=== PATIENT | female | born 1960 | race Caucasian/White ===

== ENCOUNTER 2018-04-30 10:42 | Outpatient (REF) | payer OTHER, SELFPAY ==
--- NOTE | 2018-04-30 10:30 | PAPFT_PTH ---
PATIENT: Clara Razo LOC: [facility] U#:[id number] AGE/SX: 57/F ROOM: RE04/30/[address]: MIHIR Mckenna : 1960 BED: DIS: 04/30/2018 SPEC #: [id number] RECD: 04/30/18 12:56 STATUS: GREGORIO REMy #: [id number] ALEXANDRA: 04/30/18 10:[address]: Devi White DEPT: [facility] Cytology RECD BY: Linh Mccullough ENTERED: 04/30/18 12:56 SP TYPE: PAPFT OT DR: Kiley Hurst APRN Tissues: 1 - CX/ENDOCX FOR PAP SMEARS Procedures: PAP THIN PREP/UVM Screening HPV DNA PROBE Comments: [id number]
== END 2018-04-30 11:02 ==
LOC: LBN 10:42
PROVIDERS: PCP Nurse Practitioner; Visit Provider Nurse Practitioner Family
DX: Z12.4 Encounter for screening for malignant neoplasm of cervix (principal); Z11.51 Encounter for screening for human papillomavirus (HPV)
CPT/HCPCS: 88142; 87624

== ENCOUNTER 2018-05-08 02:00 | Outpatient (CLI) | payer OTHER, SELFPAY ==
--- NOTE | 2018-05-08 13:18 | DI.MAMMO_ITS ---
SYMPTOMS/DIAGNOSIS: SCREENING, Z12.31 MAMMOGRAMS: Mammograms were interpreted according to the usual protocol including computer analysis with CAD system, tomosynthesis and C view imaging. The breast tissue is of moderate radiodensity. There is no evidence of a mass. There are no suspicious calcifications and there has been no significant interval change when compared with prior images. SUMMARY: No evidence of malignancy, category 1. Yearly screening mammography is recommended. Breast density category B. SA ASSESSMENT OF FINDINGS: Negative. Category 1. Patient will receive a letter notifying them of these results. BI-RADS category B. There are scattered areas of fibroglandular density.
== END 2018-05-08 02:20 ==
PROVIDERS: PCP Nurse Practitioner; Visit Provider Nurse Practitioner Family
DX: Z12.31 Encounter for screening mammogram for malignant neoplasm of breast (principal)
CPT/HCPCS: 77063; 77067

== ENCOUNTER 2018-05-30 09:18 | Outpatient (CLI) | payer OTHER, SELFPAY ==
[2018-05-30 09:34] LABS: HCT 46.8 % (36.0-46.0); HGB 15.2 g/dL (12.0-15.5); Mean Corp. HGB Concentration 32.5 g/dL (32.0-36.0); Mean Corpuscular Hemoglobin 27.5 pg (27.0-33.0); Mean Corpuscular Volume 84.6 fL (80-95); Mean Platelet Volume 9.6 fL (8.0-11.0); Platelet Count 258 x1000/uL (130-400); RBC 5.53 m/cumm (4.00-5.20); RBC Distribution Width 15.2 % (11.7-14.6); White Blood Cell Count 7.57 k/cumm (4.4-10.8)
[2018-05-30 10:34] LABS: ALT 61 U/L (12-78); AST 26 U/L (15-37); Alkaline Phosphatase 102 U/L (46-116); Anion Gap 8.7 mmol/L (3-11); BUN 16 mg/dL (7-18); Bilirubin, Total 0.5 mg/dL (0.2-1.0); CO2 31.3 mmol/L (21.0-32.0); CREATININE 0.94 mg/dL (0.55-1.02); Calcium 9.8 mg/dL (8.5-10.1); Chloride 102 mmol/L (98-107); Cholesterol 164 mg/dL (50-200); Glucose 99 mg/dL (70-100); HDL Cholesterol 50 mg/dL (40-60); LDL CHOLESTEROL 102 mg/dL (<100); Potassium 4.3 mmol/L (3.5-5.1); Sodium 142 mmol/L (136-145); TSH (W/Ref FT4) 1.52 uIU/mL (0.358-3.74); Total Protein 7.6 g/dL (6.4-8.2); Triglyceride 77 mg/dL (30-150)
== END 2018-05-30 09:38 ==
PROVIDERS: PCP Nurse Practitioner; Visit Provider Nurse Practitioner
DX: E66.9 Obesity, unspecified (principal); Z13.220 Encounter for screening for lipoid disorders
CPT/HCPCS: 36415; 80053; 80061; 83721; 85027; 84443

== ENCOUNTER 2019-05-16 03:27 | Outpatient (CLI) | payer BC, SELFPAY ==
--- NOTE | 2019-05-16 15:34 | DI.MAMMO_ITS ---
EXAM: MG MAMMO SCREENING CLINICAL HISTORY: SCREENING TECHNIQUE: Mammograms were interpreted according to the usual protocol including computer analysis w [email or web address] CAD system, tomosynthesis and C-view imaging. COMPARISON: Current examination is compared with previous examinations including April 2018 and 2015 FINDINGS: Breasts are of moderate density with fairly symmetrical distribution of fibroglandular tissue. No do minant mass or clumped microcalcification is identified in either breast. Current examination is com pared with previous examinations including April 2018 and January 2016 and there has been no gross i nterval change in appearance in comparison with the previous studies. IMPRESSION: No specific evidence of malignancy at this time. Routine screening examinations are suggested at year ly intervals in this age group according to the ACS ACR guidelines. BI-RADS Cat 1 - Negative Breast Density - Category B - Scattered areas of fibroglandular density
== END 2019-05-16 03:47 ==
PROVIDERS: PCP Student in an Organized Health Care Education/Training Program; Visit Provider Nurse Practitioner Family
DX: Z12.31 Encounter for screening mammogram for malignant neoplasm of breast (principal)
CPT/HCPCS: 77063; 77067

== ENCOUNTER 2019-11-04 07:11 | Outpatient (CLI) | payer BC, SELFPAY ==
[2019-11-05 21:05] LABS: Patient Race White; SARS-CoV-2 RNA Undetected (Undetected); SARS-CoV-2 Specimen Source Nasopharynx
== END 2019-11-04 07:31 ==
PROVIDERS: PCP Student in an Organized Health Care Education/Training Program; Visit Provider Student in an Organized Health Care Education/Training Program
DX: Z20.828 Contact with and (suspected) exposure to other viral communicable diseases (principal)
CPT/HCPCS: U0003

== ENCOUNTER 2020-06-24 01:27 | Outpatient (CLI) | payer BC, SELFPAY ==
--- NOTE | 2020-06-24 15:55 | DI.MAMMO_ITS ---
Exam(s) MAMMO SCREENING EXAM: MAMMO SCREENING CLINICAL HISTORY: screening,Z12.39. TECHNIQUE: Bilateral full field digital CC and MLO mammographic images were obtained with 3D tomosyn thesis and utilizing computer aided detection (CAD). COMPARISON: Prior mammograms dating back to 2010, the most recent being April 2003. FINDINGS: Asymmetric densities left breast remain unchanged from prior studies. There are no new spiculated masses nor malignant appearing microcalcification groups. There is no significant architectural distortion nor skin thickening-retraction. IMPRESSION: Stable benign findings. No radiographic evidence of malignancy. BI-RADS Category 2 - Benign Findings Breast Density - Category B - Scattered areas of fibroglandular density Breast density Category C or D implies that the patient has dense breast tissue. Dense breast tissue can make it harder to find cancer on a mammogram. Dense breast tissue is also associated with an incr eased risk of breast cancer. This information about the result of the mammogram report was provided to the patient to raise their awareness. Use this report when you speak with the patient about their risks for breast cancer, which includes their family history. At that time, you may recommend additional screening tests (Ultrasoun d or MRI) as these tests may add significant information. A negative radiographic report should not delay biopsy if a dominant or clinically suspicious mass is present. Up to ten percent of cancers are not identified on mammography. A negative report may reinforce clinical impression. Adenosis and dense breasts may obscure an underlying neoplasm. False positive reports average 6 to 10%. Patient will receive a letter notifying them of these results.
== END 2020-06-24 01:47 ==
PROVIDERS: PCP Student in an Organized Health Care Education/Training Program; Visit Provider Nurse Practitioner Family
DX: Z12.31 Encounter for screening mammogram for malignant neoplasm of breast (principal)
CPT/HCPCS: 77063; 77067

== ENCOUNTER 2021-06-16 09:42 | Outpatient (REF) | payer BC, SELFPAY ==
--- NOTE | 2021-06-16 09:15 | PAPFT_PTH ---
PATIENT: Clara Razo LOC: [facility] U#:[id number] AGE/SX: 60/F ROOM: RE06/16/[address]: MIHIR Mckenna : 1960 BED: DIS: 06/16/2021 SPEC #: [id number] RECD: 06/16/21 12:40 STATUS: GREGORIO REMy #: [id number] ALEXANDRA: 06/16/21 09:[address]: Devi White DEPT: [facility] Cytology RECD BY: Linh Mccullough ENTERED: 06/16/21 12:40 SP TYPE: PAPFT OTHR DR: Kalie Rapp, DO Tissues: 1 - CX/ENDOCX FOR PAP SMEARS Procedures: PAP THIN PREP/UVM Screening HPV DNA PROBE Comments: [id number]
== END 2021-06-16 09:43 | disposition home or self-care (01) ==
LOC: LBN 09:42
PROVIDERS: PCP Student in an Organized Health Care Education/Training Program; Visit Provider Nurse Practitioner Family
DX: Z12.4 Encounter for screening for malignant neoplasm of cervix (principal); Z11.51 Encounter for screening for human papillomavirus (HPV)
CPT/HCPCS: 88142; 87624

== ENCOUNTER → 2021-07-20 03:51 | Outpatient (CLI) | payer BC, SELFPAY ==
--- NOTE | 2021-07-20 16:30 | DI.MAMMO_ITS ---
Exam(s) MAMMO SCREENING EXAM: MAMMO SCREENING CLINICAL HISTORY: screening TECHNIQUE: Bilateral full field digital CC and MLO mammographic images were obtained with 3D tomosyn thesis and utilizing computer aided detection (CAD). COMPARISON: Available for comparison. FINDINGS: Masses/Architectural Distortion: None seen. Microcalcifications: No suspicious pleomorphic-type are seen. Skin Thickening/Nipple Retraction: None. IMPRESSION: 1. No significant interval change with no specific features of malignancy noted. 2. Unless there is more urgent need, screening mammography is recommended, as per [employer] guidelines. BI-RADS Category 1 - Negative Breast Density - Category B - Scattered areas of fibroglandular density Breast density category C or D implies that the patient has dense breast tissue. Dense breast tissue is very common and is not abnormal but dense breast tissue can make it harder to find cancer on a ma mmogram. Also, dense breast tissue may increase their breast cancer risk. This information about the result of the mammogram report was provided to the patient to raise their awareness. Use this report when you speak with the patient about their risks for breast cancer, which includes their family hist ory. At that time, you may recommend for more screening tests (Ultrasound or MRI) as they might be us eful based on their risk. A negative radiographic report should not delay biopsy if a dominant or clinically suspicious mass is present. Up to ten percent of cancers are not identified on mammography. A negative report may reinforce clinical impression. Adenosis and dense breasts may obscure an underlying neoplasm. False positive reports average 6 to 10%. Patient will receive a letter notifying them of these results.
== END ==
PROVIDERS: PCP Student in an Organized Health Care Education/Training Program; Visit Provider Nurse Practitioner Family
DX: Z12.31 Encounter for screening mammogram for malignant neoplasm of breast (principal); R92.8 Other abnormal and inconclusive findings on diagnostic imaging of breast
CPT/HCPCS: 77063; 77067

== ENCOUNTER 2021-10-03 03:37 | Outpatient (CLI) | payer OTHER, SELFPAY ==
[2021-10-03 07:34] LABS: HGB 14.6 g/dL (11.2-15.7)
[2021-10-03 08:10] LABS: ALT 52 U/L (14-59); AST 25 U/L (15-37); Albumin 3.5 g/dL (3.4-5.0); Alkaline Phosphatase 96 U/L (46-116); Anion Gap 8.2 mmol/L (3-11); BUN 15 mg/dL (7-18); Bilirubin, Total 0.2 mg/dL (0.2-1.0); CO2 27.8 mmol/L (21.0-32.0); CREATININE 0.8 mg/dL (0.55-1.02); Calcium 8.6 mg/dL (8.5-10.1); Calculated LDL 77 mg/dL (<100); Chloride 106 mmol/L (98-107); Cholesterol 137 mg/dL (<200); Glucose 93 mg/dL (74-106); HDL Cholesterol 47 mg/dL (40-60); Magnesium 1.8 mg/dL (1.8-2.4); Potassium 3.4 mmol/L (3.5-5.1); Sodium 142 mmol/L (136-145); Total Protein 7.2 g/dL (6.4-8.2); Triglyceride 67 mg/dL (<150)
[2021-10-05 19:22] LABS: Lab Add On Test DONE
[2021-10-05 19:57] LABS: Hemoglobin A1C 6.2 % (<5.7)
== END 2021-10-03 03:38 | disposition home or self-care (01) ==
LOC: LBO 03:37
PROVIDERS: PCP Student in an Organized Health Care Education/Training Program; Visit Provider Student in an Organized Health Care Education/Training Program
DX: E86.0 Dehydration (principal); E87.8 Other disorders of electrolyte and fluid balance, not elsewhere classified; K59.00 Constipation, unspecified; N28.9 Disorder of kidney and ureter, unspecified; Z13.6 Encounter for screening for cardiovascular disorders
CPT/HCPCS: 36415; 80053; 80061; 83036; 83735; 85018

== ENCOUNTER → 2021-12-01 02:02 | Outpatient (CLI) | payer OTHER, SELFPAY ==
--- NOTE | 2021-12-01 07:30 | DI.US_ITS ---
APPROVED REPORT EXAM: Comprehensive 2D, Doppler, and color-flow Echocardiogram Patient Location: Out-Patient Communication Skills Instructor: Niya Cota RDCS (AE) Indications: Evaluate valves, Heart Murmur, Other Information Study Quality: Adequate Conclusion Normal left ventricular wall thickness and chamber size. Estimated ejection fraction is 55 to 60%. Wall motion is normal Normal right ventricular size and systolic function Both atria are normal in size There is no structural or hemodynamically significant valvular disease Wall motion Left Ventricle The left ventricle is normal size. The left ventricular systolic function is normal. The left ventric ular ejection fraction is within the normal range. There is normal left ventricular wall thickness. T here is normal LV segmental wall motion. There is no ventricular septal defect visualized. LVEF is 57 %. Right Ventricle The right ventricle is normal size. The right ventricular systolic function is normal. The RVSP is 15 .5 mmHg. Atria The left atrium size is normal. The right atrium size is normal. The interatrial septum is intact wit h no evidence for an atrial septal defect. Aortic Valve The aortic valve is normal in structure. Aortic valve is trileaflet. There is no aortic valvular sten osis. No aortic regurgitation is present. Mitral Valve The mitral valve is normal in structure. No evidence of mitral valve stenosis. Trace mitral regurgita tion. Tricuspid Valve The tricuspid valve is normal in structure. There is no tricuspid valve stenosis. Trace tricuspid reg urgitation. Pulmonic Valve The pulmonary valve is normal in structure. There is no pulmonic valvular stenosis. Trace pulmonic re gurgitation. Great Vessels The aortic root is normal in size. The ascending aorta is normal in size. IVC is normal in size and c ollapses >50% with inspiration. 2D Dimensions IVSD d PLAX 0.87 cm F: 0.6-1.0 LV Vol A2C d MOD 79.3 mL LVPW d PLAX 0.86 cm F: 0.6 - 1.0 LV Vol A4C d MOD 77.6 mL LVID d PLAX 4.21 cm F: 3.8 - 5.2 LA vol/ BSA A4C s A-L 11.5 mL/m2 LVDs 2.95 cm F: 2.2 - 3.5 LA Area A4C s MOD 10.59 cm2 Ao Root d 2.70 cm F: 2.7 - 3.3 LV EF A4C MOD 57.4 % RA Area A4C 10.82 cm2 LV EF A2C MOD 55.2 % RA Vol/ BSA A4C s A-L 12.8 mL/m2 LV EF Biplane MOD 56.5 % Ao Asc Diam d 2.95 cm F: 2.3 - 3.1 SV 44.66 mL LV EF Teichholz 57.5 % SV Index 23.93 mL/m2 LVEF (Westbrook's) 56.54 % F: 54 - 74 LV Volume 60.66 mL F: 46 - 106 LV Volume Index 32.61 mL/m2 F: 29 - 61 LV Vol Biplane MOD 79.0 mL FS 29.90 % M-Mode TAPSE 2.16 cm (M/F) >1.7 LV Diastology MV E' medial 0.104 (>0.07 m/s) E/A Ratio 1.2 LV E/e MED 7.30 (<14) MV E Vmax 0.76 (0.4-1.3 m/s) MV E' lateral 0.125 (>0.1 m/s) MV A Vmax 0.65 (0.4-1.3 m/s) LV E/e LAT 6.05 (<14) MV E/A Ratio 1.11 MV E/E' medial 7.31 MV E/E' lateral 6.05 Aortic Valve LVOT Area 3.01 cm2 AoV Area Vmax 2.77 cm2 LVOT Vmax 1.07 m/s AoV Area/ BSA (Vmax) 1.48 cm2/m2 LVOT Mean Hayes. 0.66 m/s MALIKA Mean Hayes. 2.35 cm2 LVOT Peak Grad 4.6 mmHg MALIKA Mean Hayes. Index 1.26 cm2/m2 LVOT Mean Grad 2.1 mmHg LVOT VTI 0.270 m LVOT Diam s 1.95 cm AoV Vmax 1.17 m/s Velocity Ratio 0.91 AoV Mean Hayes. 0.84 m/s AoV Peak Grad 5.5 mmHg LVOT SV 81.17 mL AoV Mean Grad 3.1 mmHg AoV VTI 0.285 m AoV Area VTI 2.85 cm2 AoV Area/ BSA (VTI) 1.53 cm/m2 Mitral Valve MV DT 207 (160-240 msec) MV PHT 60 msec MV Area PHT 3.66 cm2 MV VTI 0.342 m MV Area VTI 2.38 (4.0-6.0 cm2) Pulmonary Valve PV Vmax 0.86 (0.5-1.5 m/s) RVOT Peak Gr. 1.70 mmHg PV Peak Grad 2.9 mmHg RVOT Mean Gr. 0.90 mmHg PV Mean Grad 1.7 mmHg RVOT VTI 0.145 m PV VTI 0.179 m RVOT Vmax 0.65 m/s Tricuspid Valve TR Peak Grad 12.5 mmHg TR Vmax 1.77 m/s RA Pressure 3.00 mmHg RVSP (TR) 15.5 mmHg
== END ==
PROVIDERS: PCP Student in an Organized Health Care Education/Training Program; Visit Provider Student in an Organized Health Care Education/Training Program
DX: R01.1 Cardiac murmur, unspecified (principal); R63.5 Abnormal weight gain; R68.89 Other general symptoms and signs; Z78.9 Other specified health status
CPT/HCPCS: 93306

== ENCOUNTER 2021-12-01 02:20 | Outpatient (CLI) | payer OTHER, SELFPAY ==
[2021-12-01 09:38] LABS: Anion Gap 6.3 mmol/L (3-11); BUN 19 mg/dL (7-18); CO2 32.7 mmol/L (21.0-32.0); CREATININE 0.9 mg/dL (0.55-1.02); Calcium 9.6 mg/dL (8.5-10.1); Chloride 103 mmol/L (98-107); Estimated GFR 72.28 (mL/min/1.73m2); Glucose 103 mg/dL (74-106); Magnesium 1.9 mg/dL (1.8-2.4); Potassium 3.5 mmol/L (3.5-5.1); Sodium 142 mmol/L (136-145)
== END 2021-12-01 02:21 | disposition home or self-care (01) ==
LOC: LBO 02:20
PROVIDERS: PCP Student in an Organized Health Care Education/Training Program; Visit Provider Student in an Organized Health Care Education/Training Program
DX: E87.6 Hypokalemia (principal)
CPT/HCPCS: 36415; 80048; 83735

== ENCOUNTER 2022-07-31 02:05 | Outpatient (CLI) | payer OTHER, SELFPAY ==
--- NOTE | 2022-07-31 09:15 | DI.MAMMO_ITS ---
Exam(s) MAMMO SCREENING EXAM: MAMMO SCREENING CLINICAL HISTORY: screening TECHNIQUE: Bilateral full field digital CC and MLO mammographic images were obtained with 3D tomosyn thesis and utilizing computer aided detection (CAD). COMPARISON: Available for comparison. FINDINGS: Masses/Architectural Distortion: None seen. Microcalcifications: No suspicious pleomorphic-type are seen. Skin Thickening/Nipple Retraction: None. IMPRESSION: 1. No significant interval change with no specific features of malignancy noted. 2. Unless there is more urgent need, screening mammography is recommended, as per [employer] guidelines. BI-RADS Category 1 - Negative Breast Density - Category B - Scattered areas of fibroglandular density Breast density category C or D implies that the patient has dense breast tissue. Dense breast tissue is very common and is not abnormal but dense breast tissue can make it harder to find cancer on a ma mmogram. Also, dense breast tissue may increase their breast cancer risk. This information about the result of the mammogram report was provided to the patient to raise their awareness. Use this report when you speak with the patient about their risks for breast cancer, which includes their family hist ory. At that time, you may recommend for more screening tests (Ultrasound or MRI) as they might be us eful based on their risk. A negative radiographic report should not delay biopsy if a dominant or clinically suspicious mass is present. Up to ten percent of cancers are not identified on mammography. A negative report may reinforce clinical impression. Adenosis and dense breasts may obscure an underlying neoplasm. False positive reports average 6 to 10%. Patient will receive a letter notifying them of these results.
== END 2022-07-31 02:25 ==
PROVIDERS: PCP Student in an Organized Health Care Education/Training Program; Visit Provider Advanced Practice Midwife
DX: Z12.31 Encounter for screening mammogram for malignant neoplasm of breast (principal)
CPT/HCPCS: 77063; 77067

== ENCOUNTER 2023-01-15 09:46 | Day surgery (SDC) | payer OTHER, SELFPAY ==
--- NOTE | 2023-01-14 15:17 | W.PM.DSUDISC ---
Date of service: 01/15/23 Time of Service: 12:00 Discharge Plan Disposition Patient Disposition: Home Condition: Good Discharge Details Reason For Visit: screening colonoscopy Attending Provider: Bello Leon Primary Care Provider: Kalie Rapp Home Meds and New Rx's Prescriptions: Continued multivitamin Tablet 1 tab PO DAILY Metamucil (sugar) Powder 1 tbsp PO DAILY magnesium 1 tab PO DAILY citalopram [Celexa] 20 mg tablet 20 mg PO DAILY Qty: 90 3RF Rx Instructions: Continue SSRI Discontinued bisacodyl [Dulcolax (bisacodyl)] 5 mg tablet,delayed release (DR/EC) 5 mg PO QHS bisacodyl [Dulcolax (bisacodyl)] 5 mg tablet,delayed release (DR/EC) 5 mg PO ONCE Qty: 4 0RF Rx Instructions: Take per colonoscopy instructions provided by ordering providers office polyethylene glycol 3350 17 gram/dose powder 17 g PO ONCE Qty: 238 0RF Rx Instructions: Take per colonoscopy instructions provided by ordering providers office No Action docusate sodium [Colace] 100 mg capsule 100 mg PO QHS Discharge Instructions Additional Instructions: Clara, we were able to complete your colonoscopy today without any difficulty. The quality of your prep was excellent. I could see everything just fine. I did not see any signs of any tumors or polyps anywhere in your large intestine. With no significant family history of colon or rectal cancer, and a negative screening colonoscopy, my typical recommendation is to consider another colonoscopy in 10 years. If you have any questions in the meantime, please do not hesitate to call. 1. If tolerated, consume a soft, low fiber diet for 1-2 days. 2[address] Do not drive, drink alcohol, operate machinery, make critical decisions, or do activities that require coordination or balance for 24 hours. 3. Because air was put into your colon during the procedure, expelling air from your rectum (passing gas or farting) is normal. 4. You may not have a bowel movement for 1-3 days because of the colonoscopy prep. This is normal. 5. Go directly to the emergency room if you notice any of the following: Develop chills (warm to touch), or if you have a thermometer and your temperature is above 101 Difficulty breathing or difficultly swallowing Persistent vomiting Severe abdominal pain, other than gas cramps Severe chest pain Black, tarry stools Any bleeding ? exceeding one tablespoon 6. Call your physician if the site where your intravenous was started becomes red, swollen, painful, and warm to touch. 7. Your physician has reviewed your pre-procedure medications. Please continue to take those medications as previously ordered. You will be given specific information/education regarding any changes to your medications before leaving. Activity:: Activity as Tolerated Diet:: As Tolerated Discharge Orders Discharge Orders: Discharge Order (Routine); Ordered 01/14/23 Ordered By: Bello Leon DS: Diagnosis Discharge Diagnosis (1) Screen for colon cancer: Status: Acute Asessment and Plan: Negative screening colonoscopy
--- NOTE | 2023-01-14 15:18 | W.COLOREPORT ---
Date of service: 01/15/23 Time of Service: 12:01 Colonoscopy Report Date of procedure: 01/15/23 Pre-op diagnosis general: screening colonoscopy Post-op diagnosis procedure note: other (Negative screening colonoscopy) Procedure: Colonoscopy Surgeon: Bello Leon Anesthesia Type: General:No Airway Estimated blood loss (mL): 0 Pathology: none sent Complications: None Disposition: same day Indications: Clara is 62 years old. She is here for her next screening colonoscopy Prep: Miralax/Dulcolax Procedure Start Time: 11:41 Procedure End Time: 11:53 Retraction Time: 8 Findings: Negative screening colonoscopy Procedure Description: After the induction of monitored anesthetic care, and with the patient in left lateral decubitus position, I began by performing an external anorectal exam.? Perineum and skin were normal, as was the anal verge.? There was no evidence of external hemorrhoids.? Next, I performed a digital rectal exam.? I did not appreciate any abnormal findings.? Next, I advanced a colonoscope into the rectal vault.? I performed retroflexion.? This appeared normal.? Using insufflation, I then advanced the colonoscope beyond the rectal folds and into the sigmoid colon before advancing towards the cecum.? The scope was noted to be in the cecum by identification of the ileocecal valve and appendiceal orifice.? I then began withdrawing the colonoscope using repeated irrigation as necessary for full evaluation of the colonic mucosa. ?Once the scope was withdrawn to the level of the rectum, great care was taken to examine portions of the rectal folds.? I did not see any signs of tumors, polyps, or any other abnormal pathology. Finally, the scope was withdrawn and the patient was brought to the same-day surgery recovery unit as the anesthetic wore off. ?The findings and instructions were shared with the patient prior to discharge.
--- NOTE | 2023-01-15 06:57 | ANES.PREOP_ITS ---
General Info Date of Service Date Performed: 01/15/23 Height: 5 ft 3 in Weight: 87.09 kg Body Mass Index (BMI): 34.0 Surgical Procedure: Operation Date: 01/15/23 11:20 Proposed Procedure Side Surgeon anitha Leon MD Meds Allergies and Home Medications Allergies Allergy/AdvReac Type Severity Reaction Status Date / Time tree nut Allergy Severe Swelling Verified 01/15/23 10:04 of the mouth codeine AdvReac Intermediate HALLUCINATI Verified 01/15/23 10:04 ONS milk AdvReac Mild Verified 01/15/23 10:04 walnuts Allergy Severe swelling Uncoded 01/15/23 10:04 Home Medication Medication Instructions Recorded multivitamin 1 tab PO DAILY 05/14/20 psyllium seed (sugar) oral powder 1 tbsp PO DAILY 09/01/21 (Metamucil (sugar) oral powder) citalopram 20 mg tablet (Celexa) 20 mg PO DAILY #90 tabs 12/08/22 magnesium 1 tab PO DAILY 12/08/22 docusate sodium 100 mg capsule 100 mg PO QHS 01/15/23 (Colace) Current Visit Medications: Current Medications Generic Name Dose Route Start Last Admin Trade Name Freq PRN Reason Stop Dose Admin Hyoscyamine Sulfate 0.125 mg 01/14/23 15:19 Hyoscyamine 0.125 Mg Sl/Oral/Chew SL 02/13/23 15:18 DIRECTED PRN Ringer's Solution 1,000 mls @ 80 mls/hr 01/15/23 06:00 IV 01/15/23 23:59 INFUSION [facility] IV Miscellaneous Supplies 1 each 01/15/23 06:00 Iv Access IV 01/15/23 23:59 DIRECTED RUSS Ondansetron HCl 4 mg 01/14/23 15:19 Ondansetron 4 Mg/2 Ml Vial IVP 02/13/23 15:18 Q4H PRN PRN Nausea / Vomiting Sodium Chloride 0 ml 01/15/23 06:00 Normal Saline Flush 10 Ml Syr IV 01/15/23 23:59 PRN PRN Sodium Chloride 0 ml 01/15/23 06:00 Normal Saline 10 Ml Vial IJ 01/15/23 23:59 DIRECTED PRN Sterile Water 0 ml 01/15/23 06:00 Water,Injection,Sterile 10 Ml Vial IJ 01/15/23 23:59 DIRECTED PRN PFSH Active Problems Active Problems: Problem Status Onset Code Screen for colon cancer Z12.11 Depressed affect R45.89 Physical deconditioning R53.81 Hypokalemia E87.6 Decreased exercise tolerance R68.89 At high risk for caregiver role strain Z91.89 Shoulder pain, right M25.511 Murmur, heart R01.1 Constipation K59.00 Cystocele Rectocele N81.6 Medical History Medical History Anxiety Benign neoplasm of colon (11/24/11) Hypothyroidism Dx at age 7yrs took Rx for several years but d/c that many years ago' TSH's in NL ranges now Obesity (BMI 30.0-34.9) Serrated adenoma of colon 2011 Surgical History Surgical History Colonoscopy - IV Sedation 2011-serrated adenoma Dilation and curettage 2006/ Menorrhagia History of tonsillectomy and adenoidectomy Tobacco Smoking/Tobacco Use Status: Never Passive smoking exposure: Yes Second hand exposure: Yes ((adoptive)mother 3ppd smoker until 9) Alcohol Alcohol Intake: current Alcohol intake frequency: a few times a month Alcohol type: wine Substance Use Substance use: Never Substance use type: does not use Prental History History 3 Para 3 Hx # Term Pregnancies Multiple births Hx # Pregnancies Ectopic pregnancies AB induced Hx Number of Living Children AB spontaneous Vital Signs and Lab Results Vital Signs Most Recent Vital Signs in EMR: Temp Pulse Resp BP Pulse Ox 36.4 C L 92 H 20 144/78 H 96 01/15/23 10:09 01/15/23 10:09 01/15/23 10:09 01/15/23 10:09 01/15/23 10:09 Lab Results Blood Type / Crossmatch: No Data to Display Complete Blood Count: No Data to Display Complete Metabolic Panel: No Data to Display Liver Function Panel: No Data to Display Coagulation Panel: No Data to Display Cardiac Panel: No Data to Display Arterial Blood Gas: No Data to Display Venous Blood Gas: No Data to Display Pancreas Panel: No Data to Display Thyroid Panel: No Data to Display Infectious Disease: No Data to Display Blood Cultures: No Data to Display Toxicology Panel: No Data to Display Imaging and Studies Imaging and Studies Study information below may be from another EMR and interpreted by another provider. Please see original notes in EMR for more complete details. Echocardiogram Summary: 12/17: LVEF 55-60%. Anesthesia Assessment and Plan Anesthesia History Personal History: No History of Anesthesia Complications Family History: Family History Unknown Exercise Tolerance Exercise Tolerance: Metabolic Equivalents>4 Cardiac & Pulmonary Exam Cardiac Exam: Normal S1/S2 Heart Sounds Pulmonary Exam: Clear Bilateral Breath Sounds Implantable Cardiac Device Does patient have a Pacemaker or an ICD?: No Airway Exam Known Difficult Airway: No Mallampati Class: 3 Mouth Opening: Normal (> 3cm) Thyromental Distance: Greater than 3 cm Neck Range of Motion: Full ROM Neck Circumference: Normal Teeth Condition: Normal Dentition ASA Classification ASA Score: ASA 2 Emergency Case?: No NPO Status NPO Status: NPO Clears >2 hours, Solids >8 hours Anesthesia Plan Resuscitation Status: Full Code Anesthesia Technique: General Anesthesia Airway Planned: Natural Airway Monitors Used: Standard Monitors Preoperative Comments:: 62 yo female for colo. Sig PMHx: depression (celexa), never smoker, occ EtOH, Previous Anes: - colo, prop, natural airway, no issues.
[2023-01-15 10:09] VITALS: BP 144/78; PULSE 92; RESP 20; TEMP 36.4; O2SAT 96
[2023-01-15] MEDS: Lactated Ringers 1,000 ML 80 ML IV (10:20)
[2023-01-15 10:39] VITALS: BMI 34.0
[2023-01-15 11:58] VITALS: BP 90/71; PULSE 73; RESP 18; TEMP 36.4; O2SAT 94
[2023-01-15 12:16] VITALS: BP 98/69; PULSE 77; RESP 18; TEMP 36.5; O2SAT 97
--- NOTE | 2023-01-15 13:08 | W.ANESPOSTOP ---
Postoperative Evaluation Date, Time and Location Date Performed: 01/15/23 Time Performed: 13:08 Patient Location: Day Surgery Unit Vital Signs Most Recent Imported Vital Signs: Most Recent Vital Signs Temp Pulse Resp BP Pulse Ox 36.5 C 77 18 98/69 L 97 01/15/23 12:16 01/15/23 12:16 01/15/23 12:16 01/15/23 12:16 01/15/23 12:16 Pain Score Most Recent Pain Score: Most Recent Pain Score Pain Level 0 01/15/23 12:16 Assessment Mental Status: Awake (Alert & Oriented to Patient Baseline) Airway and Respiratory Function: Patent airway with normal (patient baseline) respiratory exam Cardiovascular Function: Hemodynamically Stable Hydration Status: Adequately Hydrated Nausea & Vomiting: No Nausea or Vomiting Pain: Pt. Denies Any Pain Peripheral Nerve Block: Patient did not receive a nerve block
== END 2023-01-15 12:29 | disposition home or self-care (01) ==
LOC: SUR 09:47
PROVIDERS: PCP Student in an Organized Health Care Education/Training Program; Visit Provider Surgery
PROC: 0DJD8ZZ Inspection of Lower Intestinal Tract, Via Natural or Artificial Opening Endoscopic (ICD-10-PCS; CPT 45378; principal; 2023-01-15 11:15)
DX: Z12.11 Encounter for screening for malignant neoplasm of colon (principal)
CPT/HCPCS: 45378

== ENCOUNTER 2024-05-12 01:27 | Outpatient (CLI) | payer OTHER, SELFPAY ==
--- NOTE | 2024-05-12 08:10 | DI.MAMMO_ITS ---
Exam(s) MAMMO SCREENING EXAM: MAMMO SCREENING CLINICAL HISTORY: screening,z12.39 TECHNIQUE: Mammograms were interpreted according to the usual protocol including computer analysis w [employer] CAD system, tomosynthesis and C-view imaging. COMPARISON: 2014 through 2022 FINDINGS: The breasts are composed of scattered fibroglandular densities, Breast Density category B. No suspicious masses or suspicious microcalcifications are seen. No skin thickening or abnormal axillary lymph nodes are seen. There has been no significant change from prior exams. IMPRESSION: BI-RADS Category 1, Negative mammogram Yearly screening mammography is recommended. Breast Density - Category B, scattered fibroglandular densities. A negative radiographic report should not delay biopsy if a dominant or clinically suspicious mass is present. Up to ten percent of cancers are not identified on mammography. A negative report may reinforce clinical impression. Adenosis and dense breasts may obscure an underlying neoplasm. False positive reports average 6 to 10%. Patient will receive a letter notifying them of these results.
== END 2024-05-12 01:47 ==
LOC: DI 01:27
PROVIDERS: PCP Nurse Practitioner Adult Health; Visit Provider Nurse Practitioner Adult Health
DX: Z12.31 Encounter for screening mammogram for malignant neoplasm of breast (principal); R92.323 Mammographic fibroglandular density, bilateral breasts
CPT/HCPCS: 77063; 77067

== ENCOUNTER 2024-05-16 00:19 | Outpatient (CLI) | payer OTHER, SELFPAY ==
[2024-05-16 07:27] LABS: HCT 46.3 % (36.0-46.0); HGB 15.1 g/dL (11.2-15.7); MCH 28.3 pg (27.0-33.0); MCHC 32.6 % (32.0-36.0); MCV 87 fL (80-95); MPV 9.3 fL (8.0-11.0); Platelet Count 242 10^3/uL (130-400); RBC 5.33 10^6/uL (3.93-5.22); RDW 14.4 % (11.7-14.6); WBC 6.94 10^3/uL (4.4-10.8)
[2024-05-16 07:37] LABS: Hemoglobin A1C 5.9 % (<5.7)
[2024-05-16 09:16] LABS: ALT 50 U/L (14-59); AST 26 U/L (15-37); Albumin 3.9 g/dL (3.4-5.0); Alkaline Phosphatase 105 U/L (46-116); Anion Gap 6.3 mmol/L (3-11); BUN 18 mg/dL (7-18); Bilirubin, Total 0.4 mg/dL (0.2-1.0); CO2 30.7 mmol/L (21.0-32.0); CREATININE 0.9 mg/dL (0.55-1.02); Calcium 9.4 mg/dL (8.5-10.1); Calculated LDL 87 mg/dL (<100); Chloride 105 mmol/L (98-107); Cholesterol 158 mg/dL (<200); Estimated GFR 71.39 (mL/min/1.73m2); Folate > 20.0 ng/mL (8.6-20.0); Glucose 88 mg/dL (74-106); HDL Cholesterol 58 mg/dL (>or=50); Potassium 4.4 mmol/L (3.5-5.1); Sodium 142 mmol/L (136-145); TSH (W/Ref FT4) 1.93 uIU/mL (0.36-3.74); Total Protein 7.4 g/dL (6.4-8.2); Triglyceride 69 mg/dL (<150); Vitamin B12 610 pg/mL (193-986)
[2024-05-16 18:50] LABS: Hepatitis C Ab w Rflx HCV PCR Negative (Negative)
[2024-05-16 18:53] LABS: HIV-1/2 Ag & Ab Screen Negative (Negative)
== END 2024-05-16 00:20 | disposition home or self-care (01) ==
LOC: LBO 00:19
PROVIDERS: PCP Nurse Practitioner Adult Health; Referring Provider Nurse Practitioner Adult Health; Visit Provider Nurse Practitioner Adult Health
DX: Z86.39 Personal history of other endocrine, nutritional and metabolic disease (principal); F43.23 Adjustment disorder with mixed anxiety and depressed mood; R73.03 Prediabetes; R53.83 Other fatigue; Z11.59 Encounter for screening for other viral diseases; Z11.4 Encounter for screening for human immunodeficiency virus [HIV]; Z13.220 Encounter for screening for lipoid disorders
CPT/HCPCS: 36415; 80053; 80061; 85027; 86803; 87389; 82607; 82746; 83036; 84443